=== PATIENT | female | born 1980 | race Native Hawaiian/Other Pacific Islander ===

== ENCOUNTER 2020-11-27 20:28 | Emergency (ER) | payer OTHER ==
[~2020-11-27] VITALS: Ht 154.9 cm; Wt 56.7 kg
[2020-11-27 21:33] LABS: PLATELET COUNT 278 K/uL (152-353)
[2020-11-28 01:40] VITALS: BP 114/77; TEMP 98.1
== END 2020-11-28 01:45 | disposition home or self-care (01) ==
LOC: ED 20:28
PROVIDERS: Hospitalist
DX: L02.211 Cutaneous abscess of abdominal wall (principal); Z98.890 Other specified postprocedural states
CPT/HCPCS: 36415; 80053; 81000; 81025; 82150; 83690; 85027; 96360; 96365; 96375; 96376; 99284; J1170; J1200; J1885; J2405; J3370; Q9963

== ENCOUNTER 2020-12-22 14:10 | Emergency (ER) | payer OTHER ==
[~2020-12-22] VITALS: Ht 154.9 cm; Wt 56.7 kg
[2020-12-22 14:26] VITALS: TEMP 98.8
[2020-12-22 15:19] LABS: PLATELET COUNT 474 K/uL (152-353)
[2020-12-22 15:28] LABS: POTASSIUM 2.7 mmol/L (3.6-5.2)
[2020-12-22 18:15] VITALS: BP 108/72
== END 2020-12-22 18:15 | disposition home or self-care (01) ==
LOC: ED 14:10
PROVIDERS: Emergency Medicine Emergency Medical Services
DX: R10.12 Left upper quadrant pain (principal); E87.6 Hypokalemia; K59.09 Other constipation
CPT/HCPCS: 36415; 80053; 80307; 81000; 81025; 83690; 85027; 96360; 96375; 99284; J1885; J2405; Q9963